=== PATIENT | female | born 1980 | race Caucasian/White ===

== ENCOUNTER 2018-07-02 07:09 | Day surgery (SDC) | payer BC ==
[2018-07-02] MEDS ORDERED: ceFAZolin 2 GM/DEXTROSE 100 ML IV ONE (07:22)
[2018-07-02] MEDS ORDERED: LR 1,000 ML IV ONE (07:23)
[2018-07-02] MEDS ORDERED: BUPIVACAINE 0.5% 30 ML SDV ONE (07:59)
--- NOTE | 2018-07-02 08:14 | PDHPUP ---
History & Physical Update H&P update statement: This history and physical update is based on an assessment of the patient which was completed after admission or registration (within 24 hours), but prior to the surgery/procedure. H&P update: H&P reviewed & patient examined, no change in patient's condition since H&P completed
--- NOTE | 2018-07-02 08:24 | PDANEPAE ---
ANE History of Present Illness Umbilicial hernia ANE Past Medical History - Cardiovascular History Hx Hypertension: No Hx Arrhythmias: No Hx Chest Pain: No Hx Coronary Artery / Peripheral Vascular Disease: No Hx CHF / Valvular Disease: No Hx Palpitations: No - Pulmonary History Hx COPD: No Hx Asthma/Reactive Airway Disease: No Hx Recent Upper Respiratory Infection: No Hx Oxygen in Use at Home: No Hx Sleep Apnea: No Sleep Apnea Screening Result - Last Documented: Negative - Neurologic History Hx Cerebrovascular Accident: No Hx Seizures: No Hx Dementia: No - Endocrine History Hx Diabetes: No Endocrine History Comment: hypothyroid - Renal History Hx Renal Disorders: No - Liver History Hx Hepatic Disorders: No - Neurological & Psychiatric Hx Hx Neurological and Psychiatric Disorders: Yes Neurological / Psychiatric History Comment: mild anxiety - Cancer History Hx Cancer: No - Congenital Disorder History Hx Congenital Disorders: No - GI History Hx Gastrointestinal Disorders: No - Other Health History Other Health History: wears glasses - Chronic Pain History Chronic Pain: No - Surgical History Prior Surgeries: inguinal hernia repairs x 2. x 2 ANE Review of Systems Review of Systems: - Exercise capacity METS (RN): 5 METS ANE Patient History - Allergies Allergies/Adverse Reactions: gluten Allergy (Verified 02/21/14 10:47) Milk Containing Products [dairy] Allergy (Verified 06/30/18 13:55) Penicillins Allergy (Verified 06/30/18 13:55) had reaction as a small child, not sure reaction - Home Medications Home medications: home medication list seen and reviewed Home Medications: Adult One Daily Multivit Tab 06/30/18 [Last Taken 06/29/18] Fish Oil [place]-3 Softgel 06/30/18 [Last Taken 06/29/18] Levothyroxine 06/30/18 [Last Taken 07/02/18 06:15] Magnesium 06/30/18 [Last Taken 06/29/18] Probiotic 06/30/18 [Last Taken 06/29/18] - NPO status NPO Since - Liquids (Date): 07/02/18 NPO Since - Liquids (Time): 06:15 NPO Since - Solids (Date): 07/01/18 NPO Since - Solids (Time): 23:30 - Anes Hx Anes Hx: no prior problems - Smoking Hx Smoking Status: Never smoked - Family Anes Hx Family Hx Anesthesia Complications: none ANE Labs/Vital Signs - Vital Signs Blood Pressure: 108/70 Heart Rate: 56 Respiratory Rate: 14 O2 Sat (%): 97 Height: 162.56 cm Weight: 60.328 kg ANE Physical Exam - Airway Neck exam: FROM Mallampati Score: Class 1 Mouth exam: normal dental/mouth exam - Pulmonary Pulmonary: no respiratory distress - Cardiovascular Cardiovascular: regular rate and rhythym - ASA Status ASA Status: I ANE Anesthesia Plan Anesthesia Plan: MAC
[2018-07-02] MEDS ORDERED: LIDOCAINE 1% 300 MG/30 ML SDV ONE (08:30)
[2018-07-02] MEDS ORDERED: MIDAZOLAM 2 MG/2 ML VIAL ONE (08:31)
[2018-07-02] MEDS ORDERED: MIDAZOLAM 2 MG/2 ML VIAL IVP ONE (08:33)
[2018-07-02] MEDS ORDERED: PROPOFOL/EMULSION 500 MG/50 ML BOTTLE IV ONE (08:40)
[2018-07-02] MEDS ORDERED: fentaNYL 100 MCG/2 ML INJ ONE ×2 (08:40→09:35)
[2018-07-02] MEDS ORDERED: LIDOCAINE 2% 2 ML INJ ONE (08:41)
[2018-07-02] MEDS ORDERED: ONDANSETRON 4 MG/2 ML VIAL IVP PRN (09:04)
[2018-07-02] MEDS ORDERED: fentaNYL 100 MCG/2 ML INJ IVP PRN (09:04)
[2018-07-02] MEDS ORDERED: NALOXONE HCL 0.4 MG/ML INJ IVP PRN (09:04)
--- NOTE | 2018-07-02 09:16 | POSTANESTH ---
Post Anesthetic Evaluation Cardiovascular Status: Normal, Stable Respiratory Status: Normal, Stable Level of Consciousness/Mental Status: Alert and Oriented Pain Control: Adequate, Prn Tx Ordered Nausea/Vomiting Control: Adequate, Prn Tx Ordered Complications Possibly Related to Anesthesia: None Noted
--- NOTE | 2018-07-02 09:30 | POSTOPPROG ---
Post Op Note Date of Operation: 07/02/18 Surgeon: Zena Patel Anesthesiologist: jas Anesthesia: IV Sedation Pre-op Diagnosis: umbilical hernia Post-op Diagnosis: same Indication: 37 yo with recurrent umbilical hernia Procedure: umbilical hernia repair Findings: 8 mm defect Inf/Abcess present in the surg proc area at time of surgery?: No
[2018-07-02] MEDS ORDERED: HYDROCODONE/APAP 5/325 TAB PO PRN (09:36)
[2018-07-02 10:47] VITALS: BP 98/69
--- NOTE | 2018-07-02 15:24 | GOP ---
DATE OF OPERATION: 07/02/2018 SURGEON: Zena Patel MD ANESTHESIA: Monitored anesthesia care with IV sedation. ANESTHESIOLOGIST: Akil Brink MD. PREOPERATIVE DIAGNOSIS: Recurrent umbilical hernia. POSTOPERATIVE DIAGNOSIS: Recurrent umbilical hernia. PROCEDURE PERFORMED: Umbilical hernia repair. FINDINGS: Defect approximately 8 mm. SPECIMENS: None. INDICATIONS: The patient is a 37-year-old who developed a hernia during . We attempted to repair during her , but that did not last. DESCRIPTION OF PROCEDURE: Patient was brought into the operating room and placed supine on the table . Monitored anesthesia care with IV sedation was performed. Her abdomen was prepped and draped in u sual sterile fashion. Infiltrated all sites with 0.5% Marcaine and 1% lidocaine prior to making inci sions. I made an incision beneath her umbilicus. I dissected down through the subcutaneous tissues. I came around the umbilical stalk with a hemostat and divided this from the fascia. I was able to see the small defect. It was approximately 8 mm. I closed this with 0 Surgilon I recreated a kris um bilicus with 2-0 Vicryl. Skin closed with Vicryl and 4-0 Monocryl, Mastisol, Steri-Strips, cotton ba ll. Sterile dressing applied. She was awakened in the operating room and transferred to PACU in sta ble condition. /[id number]/MODL
== END 2018-07-02 11:05 | disposition home or self-care (01) ==
LOC: FSGY 07:09
PROVIDERS: ATTEND Surgery
PROC: 0WQF0ZZ Repair Abdominal Wall, Open Approach (ICD-10-PCS; principal; 2018-07-02 08:30)
DX: K42.9 Umbilical hernia without obstruction or gangrene (principal); E03.9 Hypothyroidism, unspecified; Z82.49 Family history of ischemic heart disease and other diseases of the circulatory system; Z88.0 Allergy status to penicillin
CPT/HCPCS: J0690; J2250; J2704; J3010